=== PATIENT | male | born 1985 | race Two or more races ===

== ENCOUNTER 2023-06-23 20:39 | Emergency (ER) | payer OTHER ==
[~2023-06-23] VITALS: Ht 180.3 cm; Wt 104.3 kg
[2023-06-23] MEDS: LIDOCAINE 1% HCL (LOCAL ANESTH.) INJ 20ML MDV IJ ONE (22:54)
[2023-06-24] MEDS: ACETAMINOPHEN 325 MG TAB PO ONE (00:53)
[2023-06-24 00:55] VITALS: BP 137/77; PULSE 71; RESP 16; TEMP 98.7; O2SAT 96
== END 2023-06-24 00:57 | disposition home or self-care (01) ==
LOC: EEVIPCON 20:39 → ER 20:39
DX: S01.111A Laceration without foreign body of right eyelid and periocular area, initial encounter (principal); R51.9 Headache, unspecified; R42 Dizziness and giddiness; W18.09XA Striking against other object with subsequent fall, initial encounter; Y93.89 Activity, other specified; Y92.89 Other specified places as the place of occurrence of the external cause; Y99.8 Other external cause status
CPT/HCPCS: 12013; 99282; J2001